=== PATIENT | male | born 1935 | race Caucasian/White ===

== ENCOUNTER 2020-07-29 05:10 | Inpatient (IN) ==
[2020-07-29] MEDS ORDERED: IOPAMIDOL 100 ML BOTTLE IV ONE ×2 (05:11→12:14)
[2020-07-29 05:59] LABS: POC Creatinine 1.1 mg/dL (0.6-1.2)
[2020-07-29 06:13] LABS: POC Pro Time 11.6 sec (11.9-14.5)
[2020-07-29 06:37] LABS: Basophils # (Auto) 0.02 K/mcL (0.00-0.20); Basophils % (Auto) 0.2 % (0.0-2.0); Eosinophils # (Auto) 0.09 K/mcL (0.00-0.70); Eosinophils % (Auto) 0.8 % (0.0-7.0); Hematocrit 42.3 % (41.0-55.0); Hemoglobin 14.9 g/dL (13.5-16.5); Lymphocytes # (Auto) 0.68 K/mcL (1.50-4.80); Lymphocytes % (Auto) 6.3 % (15.0-49.0); Mean Cell Volume 94.8 fL (80.0-100.0); Mean Corpuscular HGB Conc 35.2 g/dL (31.0-36.0); Mean Platelet Volume 9.4 fL (7.4-10.4); Monocytes # (Auto) 0.58 K/mcL (0.10-0.90); Monocytes % (Auto) 5.4 % (1.0-12.0); Neutrophils % (Auto) 87.3 % (38.0-78.0); Platelet Count 207 K/mcL (140-440); RBC 4.46 M/mcL (4.50-5.90); Red Cell Distribution Width 12.8 % (11.5-14.5); WBC 10.8 K/mcL (4.5-11.0)
--- NOTE | 2020-07-29 06:45 | Emergency Department Note ---
Weakness HPI General Chief complaint: Weakness Stated complaint: falls/weakness Time Seen by Provider: 07/29/20 05:24 Source: EMS Mode of arrival: EMS Limitations: altered mental status History of Present Illness HPI Narrative: This patient was brought in because of concerns for a right facial droop which is not evident on arrival in the emergency room. I do not find any significant deficits. EMS apparently went out about 1:00 in the morning for a lift assist but there was no thought of a stroke at that time. Patient has had TIA and stroke in the past. He has been on aspirin and Plavix in the past but has had trouble with epistaxis so I think the Plavix may have been stopped. Related Data Home Medications Medication Instructions Recorded Confirmed donepezil 10 mg PO QPM 07/29/20 07/29/20 hydrochlorothiazide 12.5 mg PO QAM 07/29/20 07/29/20 trazodone 150 mg PO QPM 07/29/20 07/29/20 Previous Rx's Medication Instructions Recorded aspirin 81 mg tablet,delayed 81 mg PO QDAY #90 tab 08/24/18 release Allergies Allergy/AdvReac Type Severity Reaction Status Date / Time No Known Drug Allergies Allergy Verified 07/29/20 13:13 Review of Systems ROS ROS Narrative: Narrative: All systems ED: reviewed and negative except as stated. PFS Narrative Patient History Narrative: Narrative: Medical/Surgical/Family History All Active Problems Epistaxis (Acute) Anterior epistaxis (Acute) Hip pain, right (Acute) Acute cerebrovascular accident (CVA) (Acute) Self-care deficit (Acute) Caregiver has difficulty performing caretaking (Acute) Obesity (Chronic) Chronic anticoagulation (Chronic) Prostatitis, chronic (Chronic) Urinary retention due to benign prostatic hyperplasia (Chronic) Osteoporosis (Chronic) Hypertension, essential, benign (Chronic) Hyperlipidemia (Chronic) GERD (gastroesophageal reflux disease) (Chronic) CVA (cerebrovascular accident) (Chronic) Atherosclerosis, generalized (Chronic) Aortic aneurysm (Chronic) Psoriasis (Chronic) Tinnitus (Chronic) Drusen (degenerative) of retina (Chronic) Diverticulitis of colon (Chronic) Blepharitis (Chronic) Pseudophakia (Chronic) Phimosis (Chronic) Nuclear sclerosis (Chronic) Visual disturbance (Chronic) Medical History Aortic aneurysm (Chronic) Aphasia (Resolved) Atherosclerosis, generalized (Chronic) 05/16/2014 - Dr Baxter Blepharitis (Chronic) 06/27/2014 - Dr. Otoniel Bee Cholelithiasis (Resolved) Cholelithiasis gallbladder w/o obstruction Chronic anticoagulation (Chronic) clopidogrel Contusion (Resolved) CVA (cerebrovascular accident) (Chronic) 06/2013; Right occipital; multiple Diverticulitis of colon (Chronic) Drusen (degenerative) of retina (Chronic) 06/27/2014 - Dr. Otoniel Bee GERD (gastroesophageal reflux disease) (Chronic) Hallucinations (Resolved) Hyperlipidemia (Chronic) Hypertension, essential, benign (Chronic) Nuclear sclerosis (Chronic) 06/27/2014 - Dr. Otoniel Bee Obesity (Chronic) Osteoporosis (Chronic) Phimosis (Chronic) Pneumonia (Resolved) In the Prostatitis, chronic (Chronic) Pseudophakia (Chronic) 06/27/2014 - Dr. Otoniel Bee Psoriasis (Chronic) TIA (transient ischemic attack) (Resolved) Tinnitus (Chronic) Urinary retention due to benign prostatic hyperplasia (Chronic) Visual disturbance (Chronic) 06/27/2014 - Dr. Otoniel Bee Surgical History No pertinent past surgical history (Resolved) Family History Mother Cerebrovascular accident, Onset Age: 73 Son Hypertension Brother Cerebrovascular accident Social History Smoking Status: Never smoker Alcohol Intake Frequency: does not drink Substance Use: does not use Exam Narrative Narrative: Narrative: General Limitations: altered mental status Head Head: Present atraumatic, normocephalic and normal inspection Eye Eye: Present normal appearance, PERRL and EOMI; Absent scleral icterus and conjunctival injection ENT ENT: Present normal exam, normal oropharynx and mucous membranes moist Neck Neck: Present normal inspection and full ROM Chest Chest: Present normal inspection and symmetric chest wall rise Respiratory Respiratory: Present normal lung sounds bilaterally; Absent respiratory distress, rales/crackles and wheezes Cardiovascular Cardiovascular: Present regular rate, normal rhythm and normal heart sounds Adbominal Abdominal: Present soft; Absent distention and tenderness Extremities Extremities: Present normal inspection and full ROM; Absent pedal edema and pretibial edema Neurological Neurological: Present alert Expanded Neurological Speech: Present fluid speech CRANIAL NERVES: facial palsy (VII): Normal Motor strength - LUE: 5/5 Motor strength - RUE: 5/5 Motor strength - LLE: 5/5 Motor strength - RLE: 5/5 Psychiatric Psychiatric: Present normal affect Skin Skin: Present warm (WNL) and dry; Absent rash Course Vital Signs Vital signs: Vital Signs Pulse Rate 57 L 07/29/20 05:12 Respiratory Rate 19 07/29/20 05:12 Blood Pressure 108/66 07/29/20 05:12 Pulse Oximetry (%) 94 07/29/20 05:12 Temperature 97.2 F 08/01/20 04:10 Pulse Rate 65 07/30/20 07:51 Respiratory Rate 18 08/01/20 04:10 Blood Pressure 127/64 08/01/20 04:10 Pulse Oximetry (%) 95 08/01/20 04:10 MDM MDM Narrative Medical decision making narrative: Narrative: Patient will be admitted to the hospital for CVA. Lab Data Result diagrams: 08/01/20 05:22 08/01/20 05:22 Labs: Lab Results 07/29/20 07/29/20 07/29/20 Range/Units 05:55 05:55 05:55 WBC 10.8 (4.5-11.0) K/mcL RBC 4.46 L (4.50-5.90) M/mcL Hgb 14.9 (13.5-16.5) g/dL Hct 42.3 (41.0-55.0) % MCV 94.8 (80.0-100.0) fL MCH 33.4 (26.0-34.0) pg MCHC 35.2 (31.0-36.0) g/dL RDW 12.8 (11.5-14.5) % Plt Count 207 (140-440) K/mcL MPV 9.4 (7.4-10.4) fL Neut % (Auto) 87.3 H (38.0-78.0) % Lymph % (Auto) 6.3 L (15.0-49.0) % [place] % (Auto) 5.4 (1.0-12.0) % Eos % (Auto) 0.8 (0.0-7.0) % Baso % (Auto) 0.2 (0.0-2.0) % Lymph # (Auto) 0.68 L (1.50-4.80) K/mcL [place] # (Auto) 0.58 (0.10-0.90) K/mcL Eos # (Auto) 0.09 (0.00-0.70) K/mcL Baso # (Auto) 0.02 (0.00-0.20) K/mcL Absolute Neutrophils 9.43 H (1.80-8.00) K/mcL POC PT 11.6 L (11.9-14.5) sec PT 14.2 (11.9-14.5) sec POC INR 1.0 (0.8-1.2) INR 1.1 (0.9-1.1) APTT 29.1 (20.0-37.0) sec Sodium 132 L (133-145) mmol/L Potassium 3.6 (3.3-5.1) mmol/L Chloride 94 L (96-108) mmol/L Carbon Dioxide 25 (22-30) mmol/L Anion Gap 13.0 (8.0-16.0) BUN 13 (8-23) mg/dL Creatinine 1.2 (0.7-1.2) mg/dL POC Creatinine 1.1 (0.6-1.2) mg/dL GFR Calculation 55 Glucose 140 H (70-105) mg/dL Hemoglobin A1c (4.0-6.0) % Hgb Estim Average Glucose mg/dL Calcium 9.3 (8.6-10.4) mg/dL Total Bilirubin 0.7 (0.1-1.0) mg/dL AST 16 (<40) U/L ALT 11 (<40) U/L Alkaline Phosphatase 88 (39-117) U/L Troponin T (<0.03) ng/mL NT-Pro-B Natriuret Pep (<450.0) pg/mL Total Protein 6.9 (5.9-8.4) gm/dL Albumin 3.6 (3.2-5.2) gm/dL Globulin 3.3 (2.2-3.7) gm/dL Albumin/Globulin Ratio 1.1 (1.0-2.3) SARS-CoV-2 (PCR) (Negative) 1107/29/20 07/29/20 Range/Units 05:55 11:22 11:55 WBC (4.5-11.0) K/mcL RBC (4.50-5.90) M/mcL Hgb (13.5-16.5) g/dL Hct (41.0-55.0) % MCV (80.0-100.0) fL MCH (26.0-34.0) pg MCHC (31.0-36.0) g/dL RDW (11.5-14.5) % Plt Count (140-440) K/mcL MPV (7.4-10.4) fL Neut % (Auto) (38.0-78.0) % Lymph % (Auto) (15.0-49.0) % [place] % (Auto) (1.0-12.0) % Eos % (Auto) (0.0-7.0) % Baso % (Auto) (0.0-2.0) % Lymph # (Auto) (1.50-4.80) K/mcL Marin # (Auto) (0.10-0.90) K/mcL Eos # (Auto) (0.00-0.70) K/mcL Baso # (Auto) (0.00-0.20) K/mcL Absolute Neutrophils (1.80-8.00) K/mcL POC PT (11.9-14.5) sec PT 13.6 (11.9-14.5) sec POC INR (0.8-1.2) INR 1.0 (0.9-1.1) APTT 20.0 (20.0-37.0) sec Sodium (133-145) mmol/L Potassium (3.3-5.1) mmol/L Chloride (96-108) mmol/L Carbon Dioxide (22-30) mmol/L Anion Gap (8.0-16.0) BUN (8-23) mg/dL Creatinine (0.7-1.2) mg/dL POC Creatinine (0.6-1.2) mg/dL GFR Calculation Glucose (70-105) mg/dL Hemoglobin A1c (4.0-6.0) % Hgb Estim Average Glucose mg/dL Calcium (8.6-10.4) mg/dL Total Bilirubin (0.1-1.0) mg/dL AST (<40) U/L ALT (<40) U/L Alkaline Phosphatase (39-117) U/L Troponin T < 0.01 (<0.03) ng/mL NT-Pro-B Natriuret Pep (<450.0) pg/mL Total Protein (5.9-8.4) gm/dL Albumin (3.2-5.2) gm/dL Globulin (2.2-3.7) gm/dL Albumin/Globulin Ratio (1.0-2.3) SARS-CoV-2 (PCR) Invalid A (Negative) 07/29/20 07/29/20 Range/Units 11:55 11:55 WBC (4.5-11.0) K/mcL RBC (4.50-5.90) M/mcL Hgb (13.5-16.5) g/dL Hct (41.0-55.0) % MCV (80.0-100.0) fL MCH (26.0-34.0) pg MCHC (31.0-36.0) g/dL RDW (11.5-14.5) % Plt Count (140-440) K/mcL MPV (7.4-10.4) fL Neut % (Auto) (38.0-78.0) % Lymph % (Auto) (15.0-49.0) % [place] % (Auto) (1.0-12.0) % Eos % (Auto) (0.0-7.0) % Baso % (Auto) (0.0-2.0) % Lymph # (Auto) (1.50-4.80) K/mcL Marin # (Auto) (0.10-0.90) K/mcL Eos # (Auto) (0.00-0.70) K/mcL Baso # (Auto) (0.00-0.20) K/mcL Absolute Neutrophils (1.80-8.00) K/mcL POC PT (11.9-14.5) sec PT (11.9-14.5) sec POC INR (0.8-1.2) INR (0.9-1.1) APTT (20.0-37.0) sec Sodium (133-145) mmol/L Potassium (3.3-5.1) mmol/L Chloride (96-108) mmol/L Carbon Dioxide (22-30) mmol/L Anion Gap (8.0-16.0) BUN (8-23) mg/dL Creatinine (0.7-1.2) mg/dL POC Creatinine (0.6-1.2) mg/dL GFR Calculation Glucose (70-105) mg/dL Hemoglobin A1c 6.3 H (4.0-6.0) % Hgb Estim Average Glucose 134 mg/dL Calcium (8.6-10.4) mg/dL Total Bilirubin (0.1-1.0) mg/dL AST (<40) U/L ALT (<40) U/L Alkaline Phosphatase (39-117) U/L Troponin T < 0.01 (<0.03) ng/mL NT-Pro-B Natriuret Pep 337.0 (<450.0) pg/mL Total Protein (5.9-8.4) gm/dL Albumin (3.2-5.2) gm/dL Globulin (2.2-3.7) gm/dL Albumin/Globulin Ratio (1.0-2.3) SARS-CoV-2 (PCR) (Negative) Radiology Data Radiology results reviewed: Yes I reviewed the patient's radiology results. Radiology results narrative: Brain MRI showed for acute lacunar infarcts in the right frontal lobe. CTA of head shows scattered stenoses up to 70% in various vessels. EKG Data EKG #1: EKG attestation: Yes I reviewed and interpreted this EKG. EKG shows normal: sinus rhythm Rate: normal Discharge Plan Patient/Caregiver Discharge Instructions Pt seen by [facility]/PA only: No Clinical Impression: Acute cerebrovascular accident (CVA), Self-care deficit, Caregiver has difficulty performing caretaking Patient Disposition: Xfer As Inpt ([facility]) Discharge Date/Time: 07/29/20 12:20
[2020-07-29 06:55] LABS: ALT/SGPT 11 U/L (<40); AST/SGOT 16 U/L (<40); Albumin 3.6 gm/dL (3.2-5.2); Albumin/Globulin Ratio 1.1 (1.0-2.3); Alkaline Phosphatase 88 U/L (39-117); Bilirubin,Total 0.7 mg/dL (0.1-1.0); Blood Urea Nitrogen 13 mg/dL (8-23); Calcium 9.3 mg/dL (8.6-10.4); Carbon Dioxide 25 mmol/L (22-30); Chloride 94 mmol/L (96-108); Globulin 3.3 gm/dL (2.2-3.7); Glomerular Filtration Rate 55; Glucose 140 mg/dL (70-105)
[2020-07-29 07:08] LABS: INR 1.1 (0.9-1.1); Partial Thromboplastin Time 29.1 sec (20.0-37.0); Prothrombin Time 14.2 sec (11.9-14.5)
--- NOTE | 2020-07-29 08:52 | Magnetic Resonance Report ---
CLINICAL INFORMATION: Right facial droop. Possible acute CVA COMPARISON: Brain MRI 04/06/2014 TECHNIQUE: Sagittal T1, axial T2 FLAIR diffusion ADC images were acquired. FINDINGS: The ventricles, sulci, fissures and cisterns are symmetrically enlarged compatible with moderate atrophy which has progressed from 2014 brain MRI. There are no extra-axial fluid collections or mass appreciated. A 6 mm remote lacunar infarct in the right thalamus as again noted. Moderate chronic ischemic changes in the deep cerebral white matter with confluence and the periventricular region have progressed. Scattered small foci of restricted diffusion are present in the deep right frontal white matter: The largest is 4 mm adjacent to the frontal horn. There are also 3-4 smaller foci, less than 4 mm, in the deep mid right frontal white matter near vertex. IMPRESSION: Four small acute nonhemorrhagic lacunar infarcts in the right frontal lobe - all less than 4 mm. Interpreted and Authenticated by: Sohail Strange 07/29/20
--- NOTE | 2020-07-29 08:56 | Cat Scan Report ---
CLINICAL INFORMATION: Acute left facial droop. Evaluate for stroke COMPARISON: Head CT 04/12/2014. TECHNIQUE: 2.5 mm helical slices were obtained in the skull base to vertex. Following reconstruction, axial reformatted images were reviewed at bone and parenchymal windows. The exam was performed using radiation dose optimization techniques including, but not limited to, automated exposure control, adjustment of the mA and/or kV according to patient size and use of iterative reconstruction technique. FINDINGS: The ventricles, sulci, fissures, and cisterns are symmetrically enlarged compatible with moderate age-related atrophy. This has progressed from 2013. No extra-axial fluid collections are identified. Moderate chronic ischemic changes in the deep cerebral white matter and remote 9 mm lacunar infarct in the right thalamus are again noted. There is no evidence of hemorrhage, mass effect, or edema. Bone windows show no osseous abnormality. IMPRESSION: Moderate atrophy with chronic ischemic changes in the deep cerebral white matter and 9 mm lacunar infarct right thalamus are all stable. There is no hemorrhage, edema or other acute finding. Moderate cerumen in both external auditory meatus regions may diminish conductive hearing loss Interpreted and Authenticated by: Sohail Strange 07/29/20
--- NOTE | 2020-07-29 09:33 | Cat Scan Report ---
CLINICAL INFORMATION: Acute facial droop evaluate for CVA COMPARISON: None. TECHNIQUE: 80 cc of Isovue-370 were injected intravenously, and using SmartPrep to maximize arterial opacification, 0.625 mm helical slices were obtained from the thoracic aortic arch through the [place]. Following reconstruction, 2.5mm sagittal, coronal and axial reformatted images were processed and reviewed at standard and bone algorithm/window. 3-D volume rendered, CPR and MIP images were processed using a [employer] work station.The exam was performed using radiation dose optimization techniques including, but not limited to, automated exposure control, adjustment of the mA and/or kV according to patient size and use of iterative reconstruction technique. FINDINGS: The thoracic aortic arch is normal diameter and aortic branching is conventional. Both common, internal and external carotid arteries are widely patent. There is moderate calcific plaque in both bifurcations, but no evidence of stenosis. Moderate calcific plaque in both vertebral artery origins resulting in mild, less than than 50%, stenoses. Heavy calcific plaque is seen within the intracranial portion of both distal cervical vertebral arteries. On the left, this results in a mild (less than 50% (stenosis. Both subclavian arteries are widely patent. Soft tissues are unremarkable. The cervical spine is normal in curvature and alignment. At C6-C7, moderate broad disc spur complex with left-sided asymmetry results in mild central canal and moderate left lateral recess narrowing with possible impingement of exiting left C7 nerve root. Lung apices show scattered pleural parenchymal scarring and chronic bronchitis IMPRESSION: 1. Thoracic aortic arch, both subclavian, common, internal and external carotid arteries are widely patent. There is calcific plaque in the carotid bifurcations, but no evidence of stenosis. 2. Mild, left than 50 % stenoses of both vertebral artery origins and also the left intracranial vertebral artery. 3. C6-7: Moderate broad disc spur complex left-sided asymmetry resulting in mild central canal and moderate left lateral recess narrowing and possible impingement of the left C7 nerve root. 4. Mild chronic bronchitis Interpreted and Authenticated by: Sohail Strange 07/29/20
--- NOTE | 2020-07-29 09:36 | Cat Scan Report ---
CLINICAL INFORMATION: Acute facial droop. Possible CVA COMPARISON: None. TECHNIQUE: 80 cc of Isovue-370 were injected intravenously , and using SmartPrep to maximize cerebral arterial opacification, 0.625 mm helical slices were obtained from the skull base through the cerebral vertex. Following reconstruction , sagittal, coronal and axial reformatted images were processed and reviewed at multiple windows and levels. 3D volume rendered and MIP images were acquired at a independent workstation. The exam was performed using radiation dose optimization techniques including, but not limited to, automated exposure control, adjustment of the mA and/or kV according to patient size and use of iterative reconstruction technique. FINDINGS: There is heavy calcific plaque in the intracranial portion of both vertebral arteries. The left side, there is a 50% stenosis within the calcified segment and a 70% stenosis near the basilar junction. The basilar artery is widely patent. There are scattered mild stenoses in both posterior cerebral arteries ranging up to 50%. There is a 70% stenosis of the M1 segment right middle cerebral artery. Scattered stenoses due to fibrofatty calcific plaque seen throughout both middle and anterior cerebral arteries ranging up to 70%. No evidence of pierce thrombosis or embolus. IMPRESSION: Scattered stenoses ranging up to 70% throughout the both middle, posterior and anterior cerebral arteries. 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 No evidence of thrombus or embolus. Interpreted and Authenticated by: Sohail Strange 07/29/20
--- NOTE | 2020-07-29 09:44 | Emergency Department Note ---
Weakness HPI General Chief complaint: Weakness Stated complaint: falls/weakness Time Seen by Provider: 07/29/20 05:24 Source: EMS Mode of arrival: EMS Limitations: altered mental status History of Present Illness HPI Narrative: Narrative: Related Data Previous Rx's Medication Instructions Recorded aspirin 81 mg tablet,delayed 81 mg PO QDAY #90 tab 08/24/18 release clopidogrel 75 mg tablet 75 mg PO QDAY #90 tab 08/24/18 dutasteride 0.5 mg-tamsulosin ER 1 cap PO QDAY #90 cap 08/24/18 0.4 mg capsule ext.release 24hr mphas losartan 100 1 tab PO QAM #90 tab 08/24/18 mg-hydrochlorothiazide 12.5 mg tablet simvastatin 40 mg tablet 40 mg PO QPM #90 tab 08/24/18 sulfamethoxazole 800 1 tab PO Q12H #60 tab 10/13/18 mg-trimethoprim 160 mg tablet Allergies Allergy/AdvReac Type Severity Reaction Status Date / Time No Known Drug Allergies Allergy Verified 12/02/18 09:01 Review of Systems ROS ROS Narrative: Narrative: PFS Narrative Patient History Narrative: Narrative: Medical/Surgical/Family History All Active Problems (Updated 07/29/20 @ 11:57 by Branden Bajwa DO) Epistaxis (Acute) Anterior epistaxis (Acute) Hip pain, right (Acute) Acute cerebrovascular accident (CVA) (Acute) Self-care deficit (Acute) Caregiver has difficulty performing caretaking (Acute) Obesity (Chronic) Chronic anticoagulation (Chronic) Prostatitis, chronic (Chronic) Urinary retention due to benign prostatic hyperplasia (Chronic) Osteoporosis (Chronic) Hypertension, essential, benign (Chronic) Hyperlipidemia (Chronic) GERD (gastroesophageal reflux disease) (Chronic) CVA (cerebrovascular accident) (Chronic) Atherosclerosis, generalized (Chronic) Aortic aneurysm (Chronic) Psoriasis (Chronic) Tinnitus (Chronic) Drusen (degenerative) of retina (Chronic) Diverticulitis of colon (Chronic) Blepharitis (Chronic) Pseudophakia (Chronic) Phimosis (Chronic) Nuclear sclerosis (Chronic) Visual disturbance (Chronic) Medical History (Updated 07/29/20 @ 11:57 by Branden Bajwa DO) Aortic aneurysm (Chronic) Aphasia (Resolved) Atherosclerosis, generalized (Chronic) 05/16/2014 - Dr Baxter Blepharitis (Chronic) 06/27/2014 - Dr. Otoniel Bee Cholelithiasis (Resolved) Cholelithiasis gallbladder w/o obstruction Chronic anticoagulation (Chronic) clopidogrel Contusion (Resolved) CVA (cerebrovascular accident) (Chronic) 06/2013; Right occipital; multiple Diverticulitis of colon (Chronic) Drusen (degenerative) of retina (Chronic) 06/27/2014 - Dr. Otoniel Bee GERD (gastroesophageal reflux disease) (Chronic) Hallucinations (Resolved) Hyperlipidemia (Chronic) Hypertension, essential, benign (Chronic) Nuclear sclerosis (Chronic) 06/27/2014 - Dr. Otoniel Bee Obesity (Chronic) Osteoporosis (Chronic) Phimosis (Chronic) Pneumonia (Resolved) In the 1969's Prostatitis, chronic (Chronic) Pseudophakia (Chronic) 06/27/2014 - Dr. Otoniel Bee Psoriasis (Chronic) TIA (transient ischemic attack) (Resolved) Tinnitus (Chronic) Urinary retention due to benign prostatic hyperplasia (Chronic) Visual disturbance (Chronic) 06/27/2014 - Dr. Otoniel Bee Surgical History (Updated 10/15/18 @ 10:12 by Branden Bajwa DO) No pertinent past surgical history (Resolved) Family History Cerebrovascular accident Mother, Onset Age: 73 Brother Hypertension Son Social History Smoking Status: Never smoker Alcohol Intake Frequency: does not drink Substance Use: does not use Exam Narrative Narrative: Narrative: General: No acute distress, nontoxic. Mostly laying quietly with his eyes closed. Eyes: Pupils are symmetric at 2 mm. The left is a bit goopy with yellow mucus. Neck: No lymphadenopathy or thyromegaly or mass. Lungs: Clear to auscultation CV: Regular without murmur Extremities: No cyanosis or clubbing. Neuro: Speech is clear and understandable. He responds primarily to questions. There is no spontaneous speech production. He moves all extremities easily and well. 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 Plantarflexion is excellent with good resistance. He is not able to obey commands regarding hip flexors against resistance. Face is symmetric. He is not able to obey commands to smile big, puffs his lips out,. He does not seem to be able to answer questions at least some of them. He does obey commands to repeat words. When answering questions he uses words in a full sentence but they do not make sense for the question. Unable to assess specifically sensory. Extraocular muscles appear to be intact with symmetric gaze but he is not able to be cooperative to open his eyes and follow commands. Psychiatric: Seems to be pleasant and cooperative but resting most of the time. No agitation or psychomotor retardation specifically. No hallucinations or delusions. Abdomen: No hepatosplenomegaly. He does seem to protect some of his upper airways but he was seen to move easily and well. He denies specifically pain on palpation. General Limitations: altered mental status Course Vital Signs Vital signs: Vital Signs Pulse Rate 57 L 07/29/20 05:12 Respiratory Rate 19 07/29/20 05:12 Blood Pressure 108/66 07/29/20 05:12 Pulse Oximetry (%) 94 07/29/20 05:12 Temperature 97.0 F 07/29/20 05:37 Pulse Rate 64 07/29/20 08:46 Respiratory Rate 13 07/29/20 09:17 Blood Pressure 138/94 07/29/20 09:17 Pulse Oximetry (%) 94 07/29/20 08:46 MDM MDM Narrative Medical decision making narrative: Narrative: 09:42 AM - CT NECK: 1. Thoracic aortic arch, both subclavian, common, internal and external carotid arteries are widely patent. There is calcific plaque in the carotid bifurcations, but no evidence of stenosis. 2. Mild, left than 50 % stenoses of both vertebral artery origins and also the left intracranial vertebral artery. 3. C6-7: Moderate broad disc spur complex left-sided asymmetry resulting in mild central canal and moderate left lateral recess narrowing and possible i mpingement of the left C7 nerve root. CT HEAD: Scattered stenoses less than 70% of the mid, posterior, anterior cerebral arteries. No thrombus or embolus. MRI demonstrates 4 small acute nonhemorrhagic lacunar infarcts in the right frontal lobe lesion measuring less than 4 mm. Old 6 mm right thalamic infarct noted.. 9:44 AM - patient interviewed and does seem quite confused and unable to follow all instructions. He is able to follow some simple instructions and able to repeat words that he is asked to repeat but for example trying to get him to smile he just blows air and puffs out his lips. He is not able to open his eyes on command. Pupils do appear equal but small at 2.5 mm max diameter. He has good upper and lower extremity general strength except he does not seem to follow commands very well for the lower extremities regarding hip flexion i.e. at the knee against resistance. Some of his answers do not match the question but are in full sentences. Review of his information includes a DNR with emphasis on comfort measures signed by himself and by Dr. Stacy in this year. I tried to reach patient's , at [phone] with no answer. I left a message the first time for her to call back. I also called the home phone, and left a message there as well. 10:08 AM - I did speak with patient's , Rita, who reports that again and confirms that he has not been on Plavix for approximately 1 year. He did most recently have a TIA on March 05, 2020, was kept overnight and he actually got a lot better. He usually has been independent at home but lately has required more help. He has been incontinent of bowel and bladder for several days. He has not been able to move around well at all. He was not helping her at all last night in his movements. Some of the time he would be on his knees and she could not get him to help himself up from the floor. He cannot get in the tub with out her help recently and cannot get in the tub even now because he is too weak and she cannot lift him. She would like to consider the options of r ehabilitation. She confirms other understands his previous made wishes of DNR and comfort measures but would like to have intervention for aggressive treatment if possible. 10:40 AM - spoke with hospitalist, Dr. Do, who is willing to see patient in have him continue the stroke treatment/work-up inpatient. He would like to speak with a neurologist. 10:45 AM - patient did not tolerate walking but a few steps before he became so weak that he was nearly falling. That was here in the emergency room. 10:50 AM approximately - nursing staff contacted patient's . Last known normal was 2 days ago so presumably went to bed in the evening normal. She confirms he has been taking a baby aspirin daily. 11:02 AM - I spoke with stroke neurologist, :Dr. Roach, who agrees with no TPA, rehab, and suspects that there could be based on his age A. fib is the cause of this presentation so recommends looking for A. fib with monitoring, echo, may be sending him home with a monitor, and beginning again the clopidogrel to starting with 75 mg daily. He would still be monitored for bleeding issues or concerns and this could be a difficult clinical decision point. 11:08 AM approximately - I spoke with Dr. Do, hospitalist, regarding the above. He is here to see the patient for admission. Lab Data Result diagrams: 07/29/20 05:55 07/29/20 05:55 Labs: Lab Results 07/29/20 07/29/20 07/29/20 Range/Units 05:55 05:55 05:55 WBC 10.8 (4.5-11.0) K/mcL RBC 4.46 L (4.50-5.90) M/mcL Hgb 14.9 (13.5-16.5) g/dL Hct 42.3 (41.0-55.0) % MCV 94.8 (80.0-100.0) fL MCH 33.4 (26.0-34.0) pg MCHC 35.2 (31.0-36.0) g/dL RDW 12.8 (11.5-14.5) % Plt Count 207 (140-440) K/mcL MPV 9.4 (7.4-10.4) fL Neut % (Auto) 87.3 H (38.0-78.0) % Lymph % (Auto) 6.3 L (15.0-49.0) % [place] % (Auto) 5.4 (1.0-12.0) % Eos % (Auto) 0.8 (0.0-7.0) % Baso % (Auto) 0.2 (0.0-2.0) % Lymph # (Auto) 0.68 L (1.50-4.80) K/mcL [place] # (Auto) 0.58 (0.10-0.90) K/mcL Eos # (Auto) 0.09 (0.00-0.70) K/mcL Baso # (Auto) 0.02 (0.00-0.20) K/mcL Absolute Neutrophils 9.43 H (1.80-8.00) K/mcL POC PT 11.6 L (11.9-14.5) sec PT 14.2 (11.9-14.5) sec POC INR 1.0 (0.8-1.2) INR 1.1 (0.9-1.1) APTT 29.1 (20.0-37.0) sec Sodium 132 L (133-145) mmol/L Potassium 3.6 (3.3-5.1) mmol/L Chloride 94 L (96-108) mmol/L Carbon Dioxide 25 (22-30) mmol/L Anion Gap 13.0 (8.0-16.0) BUN 13 (8-23) mg/dL Creatinine 1.2 (0.7-1.2) mg/dL POC Creatinine 1.1 (0.6-1.2) mg/dL GFR Calculation 55 Glucose 140 H (70-105) mg/dL Calcium 9.3 (8.6-10.4) mg/dL Total Bilirubin 0.7 (0.1-1.0) mg/dL AST 16 (<40) U/L ALT 11 (<40) U/L Alkaline Phosphatase 88 (39-117) U/L Troponin T (<0.03) ng/mL Total Protein 6.9 (5.9-8.4) gm/dL Albumin 3.6 (3.2-5.2) gm/dL Globulin 3.3 (2.2-3.7) gm/dL Albumin/Globulin Ratio 1.1 (1.0-2.3) 07/29/20 Range/Units 05:55 WBC (4.5-11.0) K/mcL RBC (4.50-5.90) M/mcL Hgb (13.5-16.5) g/dL Hct (41.0-55.0) % MCV (80.0-100.0) fL MCH (26.0-34.0) pg MCHC (31.0-36.0) g/dL RDW (11.5-14.5) % Plt Count (140-440) K/mcL MPV (7.4-10.4) fL Neut % (Auto) (38.0-78.0) % Lymph % (Auto) (15.0-49.0) % [place] % (Auto) (1.0-12.0) % Eos % (Auto) (0.0-7.0) % Baso % (Auto) (0.0-2.0) % Lymph # (Auto) (1.50-4.80) K/mcL [place] # (Auto) (0.10-0.90) K/mcL Eos # (Auto) (0.00-0.70) K/mcL Baso # (Auto) (0.00-0.20) K/mcL Absolute Neutrophils (1.80-8.00) K/mcL POC PT (11.9-14.5) sec PT (11.9-14.5) sec POC INR (0.8-1.2) INR (0.9-1.1) APTT (20.0-37.0) sec Sodium (133-145) mmol/L Potassium (3.3-5.1) mmol/L Chloride (96-108) mmol/L Carbon Dioxide (22-30) mmol/L Anion Gap (8.0-16.0) BUN (8-23) mg/dL Creatinine (0.7-1.2) mg/dL POC Creatinine (0.6-1.2) mg/dL GFR Calculation Glucose (70-105) mg/dL Calcium (8.6-10.4) mg/dL Total Bilirubin (0.1-1.0) mg/dL AST (<40) U/L ALT (<40) U/L Alkaline Phosphatase (39-117) U/L Troponin T < 0.01 (<0.03) ng/mL Total Protein (5.9-8.4) gm/dL Albumin (3.2-5.2) gm/dL Globulin (2.2-3.7) gm/dL Albumin/Globulin Ratio (1.0-2.3) Discharge Plan Patient/Caregiver Discharge Instructions Pt seen by STRAIGHT TRUCK DRIVER/PA only: No Clinical Impression: Acute cerebrovascular accident (CVA), Self-care deficit, Caregiver has diffi culty performing caretaking Patient Disposition: Xfer As Inpt ([facility]) Follow up with: Shai Stacy MD [Primary Care Provider] - Prescriptions: No Action aspirin [Aspirin Low Dose] 81 mg tablet,delayed release (DR/EC) 81 mg PO QDAY Qty: 90 RF: 3 clopidogrel 75 mg tablet 75 mg PO QDAY Qty: 90 RF: 3 losartan-hydrochlorothiazide 100-12.5 mg tablet 1 tab PO QAM Qty: 90 RF: 3 simvastatin 40 mg tablet 40 mg PO QPM Qty: 90 RF: 3 dutasteride-tamsulosin 0.5-0.4 mg capsule, ER multiphase 24 hr 1 cap PO QDAY Qty: 90 RF: 3 sulfamethoxazole-trimethoprim [Bactrim DS] 800-160 mg tablet 1 tab PO Q12H Qty: 60 RF: 0
[2020-07-29] MEDS ORDERED: 0.9 % SODIUM CHLORIDE 1,000 ML IV SCH (11:30)
[2020-07-29] MEDS: 0.9 % SODIUM CHLORIDE 1,000 ML IV SCH ×2 (12:25→22:10)
[2020-07-29 13:15] LABS: Prothrombin Time 13.6 sec (11.9-14.5)
[2020-07-29 13:16] LABS: Estimated Average Glucose(eAG) 134 mg/dL; Hemoglobin A1C 6.3 % Hgb (4.0-6.0)
--- NOTE | 2020-07-29 13:40 | Internal Med History&Physical ---
HPI History of Present Illness Patient information: Note initiated : 07/29/20 at 1:25 pm Service Date, if different from initiated Date: [] Patient: Jasmin Biggs 84 y/o M admitted on 07/29/20 for Falls, Weakness. Chief Complaint: [] History of present illness: Mr. Biggs is a 84 year old M with a history of previous CVA, psoriasis and GERD who was brought to the ER due to concerns for a right facial droop. Patient is a poor historian and cannot give medical history. ER physician Dr. Lu could not find right facial droop on his exam. In the ER, CT of head without contrast showed negative for acute pathology. But MRI brain showed four small acute nonhemorrhagic lacunar infarcts in the right frontal lobe - all less than 4 mm. As per ER Dr. Bajwa, pt has been taking aspirin. He stopped taking plavix 1 year ago due to nose bleeding. Dr. Bajwa spoke to neurology Dr. Espana who suggested to continue both aspirin and plavix, and discharge him on Holter monitor. Review of Systems Review of systems: Positive for right facial droop. All other systems were reviewed and negative. PFSH PFSH All Active Problems Epistaxis (Acute) Anterior epistaxis (Acute) Hip pain, right (Acute) Acute cerebrovascular accident (CVA) (Acute) Self-care deficit (Acute) Caregiver has difficulty performing caretaking (Acute) Obesity (Chronic) Chronic anticoagulation (Chronic) Prostatitis, chronic (Chronic) Urinary retention due to benign prostatic hyperplasia (Chronic) Osteoporosis (Chronic) Hypertension, essential, benign (Chronic) Hyperlipidemia (Chronic) GERD (gastroesophageal reflux disease) (Chronic) CVA (cerebrovascular accident) (Chronic) Atherosclerosis, generalized (Chronic) Aortic aneurysm (Chronic) Psoriasis (Chronic) Tinnitus (Chronic) Drusen (degenerative) of retina (Chronic) Diverticulitis of colon (Chronic) Blepharitis (Chronic) Pseudophakia (Chronic) Phimosis (Chronic) Nuclear sclerosis (Chronic) Visual disturbance (Chronic) Medical History Aortic aneurysm (Chronic) Aphasia (Resolved) Atherosclerosis, generalized (Chronic) 05/16/2014 - Dr Baxter Blepharitis (Chronic) 06/27/2014 - Dr. Otoniel Bee Cholelithiasis (Resolved) Cholelithiasis gallbladder w/o obstruction Chronic anticoagulation (Chronic) clopidogrel Contusion (Resolved) CVA (cerebrovascular accident) (Chronic) 06/2013; Right occipital; multiple Diverticulitis of colon (Chronic) Drusen (degenerative) of retina (Chronic) 06/27/2014 - Dr. Otoniel Bee GERD (gastroesophageal reflux disease) (Chronic) Hallucinations (Resolved) Hyperlipidemia (Chronic) Hypertension, essential, benign (Chronic) Nuclear sclerosis (Chronic) 06/27/2014 - Dr. Otoniel Bee Obesity (Chronic) Osteoporosis (Chronic) Phimosis (Chronic) Pneumonia (Resolved) In the s Prostatitis, chronic (Chronic) Pseudophakia (Chronic) 06/27/2014 - Dr. Otoniel Bee Psoriasis (Chronic) TIA (transient ischemic attack) (Resolved) Tinnitus (Chronic) Urinary retention due to benign prostatic hyperplasia (Chronic) Visual disturbance (Chronic) 06/27/2014 - Dr. 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 smoking status: Never smoker alcohol intake frequency: does not drink substance use type: does not use MEDS/ALLERGIES Home Medications and Allergies Home Medications Medication Instructions Recorded Confirmed Type aspirin 81 mg tablet,delayed 81 mg PO QDAY #90 tab 08/24/18 10/24/18 Rx release losartan 100 1 tab PO QAM #90 tab 08/24/18 10/24/18 Rx mg-hydrochlorothiazide 12.5 mg tablet Allergies Allergy/AdvReac Type Severity Reaction Status Date / Time No Known Drug Allergies Allergy Verified 07/29/20 13:13 EXAM Constitutional Vitals: Temp Pulse Resp BP Pulse Ox 97.0 F 54 L 14 114/66 96 07/29/20 05:37 07/29/20 10:46 07/29/20 10:46 07/29/20 10:46 07/29/20 10:46 Additional findings Additional findings: General - No acute distress Eyes - PERRLA, EOM intact ENT no rhinorrhea, no noticeable or palpable swelling, no redness or rash around throat or on face Neck supple, no JVD, no thyromegaly Respiratory: Lungs -clear, no wheezing or crackles. Cardiovascular - RRR no m/r/g, GI - Normal bowel sounds, no distended, soft. Extremeties - No edema, cyanosis or clubbing Hemo/lymphatic/immune no lymphadenopathy Neurological Alert, left nasolabial shallow, strength and sensation in both legs and arms seem to be intact. Psychiatry flat affect DATA Data Completed and Pending Labs: Labs from last 24 hours 07/29/20 07/29/20 07/29/20 11:55 11:55 11:55 WBC RBC Hgb Hct MCV MCH MCHC RDW Plt Count MPV Neut % (Auto) Lymph % (Auto) [place] % (Auto) Eos % (Auto) Baso % (Auto) Lymph # (Auto) [place] # (Auto) Eos # (Auto) Baso # (Auto) Absolute Neutrophils POC PT PT 13.6 POC INR INR 1.0 APTT 20.0 Sodium Potassium Chloride Carbon Dioxide Anion Gap BUN Creatinine POC Creatinine GFR Calculation Glucose Hemoglobin A1c 6.3 H Estim Average Glucose 134 Calcium Total Bilirubin AST ALT Alkaline Phosphatase Troponin T < 0.01 NT-Pro-B Natriuret Pep 337.0 Total Protein Albumin Globulin Albumin/Globulin Ratio SARS-CoV-2 (PCR) 07/29/20 07/29/20 07/29/20 11:22 05:55 05:55 WBC RBC Hgb Hct MCV MCH MCHC RDW Plt Count MPV Neut % (Auto) Lymph % (Auto) [place] % (Auto) Eos % (Auto) Baso % (Auto) Lymph # (Auto) [place] # (Auto) Eos # (Auto) Baso # (Auto) Absolute Neutrophils POC PT PT POC INR INR APTT Sodium 132 L Potassium 3.6 Chloride 94 L Carbon Dioxide 25 Anion Gap 13.0 BUN 13 Creatinine 1.2 POC Creatinine 1.1 GFR Calculation 55 Glucose 140 H Hemoglobin A1c Estim Average Glucose Calcium 9.3 Total Bilirubin 0.7 AST 16 ALT 11 Alkaline Phosphatase 88 Troponin T < 0.01 NT-Pro-B Natriuret Pep Total Protein 6.9 Albumin 3.6 Globulin 3.3 Albumin/Globulin Ratio 1.1 SARS-CoV-2 (PCR) Invalid A 07/29/20 07/29/20 05:55 05:55 WBC 10.8 RBC 4.46 L Hgb 14.9 Hct 42.3 MCV 94.8 MCH 33.4 MCHC 35.2 RDW 12.8 Plt Count 207 MPV 9.4 Neut % (Auto) 87.3 H Lymph % (Auto) 6.3 L [place] % (Auto) 5.4 Eos % (Auto) 0.8 Baso % (Auto) 0.2 Lymph # (Auto) 0.68 L [place] # (Auto) 0.58 Eos # (Auto) 0.09 Baso # (Auto) 0.02 Absolute Neutrophils 9.43 H POC PT 11.6 L PT 14.2 POC INR 1.0 INR 1.1 APTT 29.1 Sodium Potassium Chloride Carbon Dioxide Anion Gap BUN Creatinine POC Creatinine GFR Calculation Glucose Hemoglobin A1c Estim Average Glucose Calcium Total Bilirubin AST ALT Alkaline Phosphatase Troponin T NT-Pro-B Natriuret Pep Total Protein Albumin Globulin Albumin/Globulin Ratio SARS-CoV-2 (PCR) A/P Narrative A/P Narrative: 1. Acute lacunar stroke 2. Hx of CVA MRI brain - Four small acute nonhemorrhagic lacunar infarcts in the right frontal lobe - all less than 4 mm. CTA head and neck: 70% throughout the both middle, posterior and anterior cerebral arteries. 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 Mild, left than 50 % stenoses of both vertebral artery origins and also the left intracranial vertebral artery. ER Dr. Bajwa spoke to neurology Dr. Espana who suggested to continue both aspirin and plavix, and discharge him on Holter monitor. Echo EKG - sinus rhythm accredited pharmacy technician Neurocheck Q4hrs Hba1c, TSH, PT/INR, lipid panel Pulse ox and oxygen therapy NPO PT/OT/CM/SP aspirin, plavix and lipitor 3. Hx of psoriasis 4. GERD continue home meds 5. Hyponatremia IVF monitor Na levvel 6. HTN permisssive HTN Monitor BP 7. DVT prophylaxis: heparin 8. Code status: As per Dr. Bajwa, DNR/comfort care. But would like to let PT/OT see pt. hope we can place pt to joint terminal attack controller care/SNF. Time Spent With Patient Time: Total time spent is greater than 50% in coordination of care (as documented) at patient's floor/unit and/or counseling patient:
[2020-07-29] MEDS ORDERED: 0.9 % SODIUM CHLORIDE 10 ML SYRINGE IV SCH (14:00)
[2020-07-29] MEDS: 0.9 % SODIUM CHLORIDE 10 ML SYRINGE IV SCH ×3 (16:45→21:02)
[2020-07-29] MEDS ORDERED: ACETAMINOPHEN 325 MG TABLET PO ONE (20:57)
[2020-07-29] MEDS: DONEPEZIL 10 MG TABLET PO SCH (21:00)
[2020-07-29] MEDS ORDERED: FAMOTIDINE/PF 20 MG/2 ML VIAL IV SCH (21:00)
[2020-07-29] MEDS ORDERED: HEPARIN 5,000 UNIT/ML VIAL SQ SCH (21:00)
[2020-07-29] MEDS ORDERED: traZODone HCL 50 MG TABLET PO PRN (21:00)
[2020-07-29] MEDS: FAMOTIDINE/PF 20 MG/2 ML VIAL IV SCH (21:01)
[2020-07-29] MEDS: ACETAMINOPHEN 325 MG TABLET PO PRN (21:01)
[2020-07-29] MEDS: HEPARIN 5,000 UNIT/ML VIAL SQ SCH (21:01)
[2020-07-30] MEDS: 0.9 % SODIUM CHLORIDE 10 ML SYRINGE IV SCH ×3 (05:37→20:22)
[2020-07-30 06:59] LABS: Basophils # (Auto) 0.01 K/mcL (0.00-0.20); Basophils % (Auto) 0.1 % (0.0-2.0); Eosinophils # (Auto) 0.06 K/mcL (0.00-0.70); Eosinophils % (Auto) 0.7 % (0.0-7.0); Hemoglobin 13.8 g/dL (13.5-16.5); Lymphocytes # (Auto) 1.23 K/mcL (1.50-4.80); Lymphocytes % (Auto) 14.4 % (15.0-49.0); Mean Cell Volume 96.4 fL (80.0-100.0); Mean Corpuscular HGB Conc 34.5 g/dL (31.0-36.0); Mean Platelet Volume 9.4 fL (7.4-10.4); Monocytes # (Auto) 0.63 K/mcL (0.10-0.90); Monocytes % (Auto) 7.4 % (1.0-12.0); Neutrophils % (Auto) 77.4 % (38.0-78.0); Platelet Count 190 K/mcL (140-440); RBC 4.15 M/mcL (4.50-5.90); Red Cell Distribution Width 13.2 % (11.5-14.5); WBC 8.5 K/mcL (4.5-11.0)
[2020-07-30] MEDS ORDERED: hydrALAZINE 20 MG/ML VIAL IV PRN (07:29)
[2020-07-30 07:58] LABS: ALT/SGPT 10 U/L (<40); AST/SGOT 19 U/L (<40); Albumin 3.3 gm/dL (3.2-5.2); Albumin/Globulin Ratio 1.2 (1.0-2.3); Alkaline Phosphatase 72 U/L (39-117); Bilirubin,Total 0.5 mg/dL (0.1-1.0); Blood Urea Nitrogen 15 mg/dL (8-23); Calcium 8.6 mg/dL (8.6-10.4); Carbon Dioxide 27 mmol/L (22-30); Chloride 99 mmol/L (96-108); Globulin 2.8 gm/dL (2.2-3.7); Glomerular Filtration Rate 61; Glucose 99 mg/dL (70-105); HDL Cholesterol 35 mg/dL (>40); LDL Cholesterol,Calculated 90 mg/dL (<100); Non-HDL Cholesterol 109 mg/dL (<130); Thyroid Stimulating Hormone 2.71 uIU/mL (0.27-5.01); Triglycerides 97 mg/dL (<150)
[2020-07-30] MEDS: FAMOTIDINE/PF 20 MG/2 ML VIAL IV SCH ×2 (08:22→20:17)
[2020-07-30] MEDS: HEPARIN 5,000 UNIT/ML VIAL SQ SCH ×2 (08:22→20:17)
[2020-07-30] MEDS: CLOPIDOGREL 75 MG TABLET PO SCH (08:23)
[2020-07-30] MEDS: HYDROCHLOROTHIAZIDE 12.5 MG CAPSULE PO SCH (08:23)
[2020-07-30] MEDS: ATORVASTATIN 40 MG TABLET PO SCH (08:23)
[2020-07-30] MEDS: ASPIRIN 81 MG TAB.CHEW PO SCH (08:23)
[2020-07-30] MEDS: 0.9 % SODIUM CHLORIDE 1,000 ML IV SCH ×3 (08:39→18:35)
[2020-07-30] MEDS: CHLORHEXIDINE GLUCONATE 1 ML ORAL.SOL SWABMOUTH SCH ×2 (08:53→20:20)
[2020-07-30] MEDS ORDERED: CLOPIDOGREL 75 MG TABLET PO SCH (09:00)
[2020-07-30] MEDS ORDERED: ATORVASTATIN 40 MG TABLET PO SCH (09:00)
[2020-07-30] MEDS ORDERED: ASPIRIN 81 MG TAB.CHEW PO SCH (09:00)
--- NOTE | 2020-07-30 14:55 | Internal Med Progress Note ---
SUBJECTIVE Subjective Patient information: Note initiated : 07/30/20 at 2:48 pm Service Date, if different from initiated Date: [] Patient: Jasmin Biggs 84 y/o M admitted on 07/29/20 for Falls, Weakness. Chief Complaint: [] Mr. Biggs is a 84 year old M with a history of previous CVA, psoriasis and GERD who was brought to the ER due to concerns for a right facial droop. Patient is a poor historian and cannot give medical history. ER physician Dr. Lu could not find right facial droop on his exam. In the ER, CT of head without contrast showed negative for acute pathology. But MRI brain showed four small acute nonhemorrhagic lacunar infarcts in the right frontal lobe - all less than 4 mm[address] As per ER Dr. Bajwa, pt has been taking aspirin. He stopped taking plavix 1 year ago due to nose bleeding. Dr. Bajwa spoke to neurology Dr. Espana who suggested to continue both aspirin and plavix, and discharge him on Holter monitor. 07/30 Pt does not have any complaints. Denies headache, dizziness, nausea, or vomiting. Blood pressure is not well controlled. He was a found to have bradycardia but patient is asymptomatic. No overnight events Review of Systems Review of systems: Positive for right facial droop. All other systems were reviewed and negative. Constitutional Vitals: Vital Signs Temp Pulse Resp BP Pulse Ox 98.1 F 65 15 119/58 93 07/30/20 12:00 07/30/20 07:51 07/30/20 14:01 07/30/20 14:01 07/30/20 14:01 Period Temp Pulse Resp BP Sys/Patel Pulse Ox Last 24 Hr 97.6 F-98.8 F 51-78 12-29 56-183/33-108 91-98 Intake and Output 07/30/20 07/30/20 07/30/20 05:59 13:59 21:59 Intake Total 975 1480 Output Total 1250 300 Balance -275 1180 Weight 85.7 kg Patient Weight 07/31/20 05:59 Weight 85.7 kg Intake & Output: Intake & Output 07/30/20 07/30/20 07/30/20 05:59 13:59 21:59 Intake Total 975 1480 Output Total 1250 300 Balance -275 1180 Weight 85.7 kg Intake: IV 975 1000 Sodium Chloride 0.9% 1,000 ml @ 975 1000 100 mls/hr IV .Q10H [facility] Rx#: [id number] Oral 480 Output: Urine Catheter Amount 1250 300 Other: Meal Breakfast Percent of Meal Consumed 75% Feeding Ability Total Assistance Urine Appearance Clear Clear Small Blood Clots Small Blood Clots Uretheral (Benites) Clear Small Blood Clots Urine Color Light Kiki Light Kiki Uretheral (Benites) Light Kiki Additional findings Additional findings: General - No acute distress Eyes - PERRLA, EOM intact ENT no rhinorrhea, no noticeable or palpable swelling, no redness or rash around throat or on face Neck supple, no JVD, no thyromegaly Respiratory: Lungs -clear, no wheezing or crackles. Cardiovascular - RRR no m/r/g, GI - Normal bowel sounds, no distended, soft. Extremeties - No edema, cyanosis or clubbing Hemo/lymphatic/immune no lymphadenopathy Neurological Alert, left nasolabial shallow, strength and sensation in both legs and arms seem to be intact. Psychiatry flat affect OBJ DATA Labs CBC & Chem 7: 07/30/20 05:22 07/30/20 05:22 Labs: Abnormal Lab Results 07/30/20 07/30/20 07/29/20 05:22 05:22 11:55 RBC 4.15 L Hct 40.0 L Neut % (Auto) Lymph % (Auto) 14.4 L Lymph # (Auto) 1.23 L Absolute Neutrophils POC PT Sodium Chloride Glucose Hemoglobin A1c 6.3 H HDL Cholesterol 35 L SARS-CoV-2 (PCR) 07/29/20 07/29/20 07/29/20 11:22 05:55 05:55 RBC Hct Neut % (Auto) Lymph % (Auto) Lymph # (Auto) Absolute Neutrophils POC PT 11.6 L Sodium 132 L Chloride 94 L Glucose 140 H Hemoglobin A1c HDL Cholesterol SARS-CoV-2 (PCR) Invalid A 07/29/20 05:55 RBC 4.46 L Hct Neut % (Auto) 87.3 H Lymph % (Auto) 6.3 L Lymph # (Auto) 0.68 L Absolute Neutrophils 9.43 H POC PT Sodium Chloride Glucose Hemoglobin A1c HDL Cholesterol SARS-CoV-2 (PCR) Meds: Medications Acetaminophen (Tylenol) 650 mg PO Q6HP PRN; Protocol PRN Reason: Per Pain Protocol Last Admin: 07/29/20 21:01 Dose: 650 mg Documented by: Amlodipine Besylate (Norvasc) 5 mg PO DAILY [facility] Aspirin (Aspirin) 81 mg PO DAILY [facility] Last Admin: 07/30/20 08:23 Dose: 81 mg Documented by: Atorvastatin Calcium (Lipitor) 40 mg PO DAILY [facility] Last Admin: 07/30/20 08:23 Dose: 40 mg Documented by: Chlorhexidine Gluconate (Peridex) 15 ml SWABMOUTH BID [facility] Last Admin: 07/30/20 08:53 Dose: 15 ml Documented by: Clopidogrel Bisulfate (Plavix) 75 mg PO DAILY [facility] Last Admin: 07/30/20 08:23 Dose: 75 mg Documented by: Donepezil HCl (Aricept) 10 mg PO HS [facility] Last Admin: 07/29/20 21:00 Dose: 10 mg Documented by: Famotidine (Pepcid) 20 mg IV Q12 [facility] Last Admin: 07/30/20 08:22 Dose: 20 mg Documented by: Heparin Sodium (Porcine) (Heparin) 5,000 unit SQ Q12 [facility] Last Admin: 07/30/20 08:22 Dose: 5,000 unit Documented by: Hydralazine HCl (Apresoline) 10 mg IV Q4-6HP PRN PRN Reason: Hypertension Hydrochlorothiazide (Oretic) 12.5 mg PO DAILY [facility] Last Admin: 07/30/20 08:23 Dose: 12.5 mg Documented by: Sodium Chloride (Sodium Chloride 0.9%) 1,000 mls @ 100 mls/hr IV .Q10H [facility] Last Admin: 07/30/20 08:39 Dose: 100 mls/hr Documented by: Sodium Chloride (Saline Flush) 10 ml IV Q8 [facility] Last Admin: 07/30/20 05:37 Dose: 10 ml Documented by: Trazodone HCl (Desyrel) 50 mg PO HSP PRN PRN Reason: Insomnia A/P Narrative A/P Narrative: 1. Acute lacunar stroke 2. Hx of CVA MRI brain - Four small acute nonhemorrhagic lacunar infarcts in the right frontal lobe - all less than 4 mm. CTA head and neck: 70% throughout the both middle, posterior and anterior cerebral arteries. 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 Mild, left than 50 % stenoses of both vertebral artery origins and also the left intracranial vertebral artery. ER Dr. Bajwa spoke to neurology Dr. Espana who suggested to continue both aspirin and plavix, and discharge him on Holter monitor. Echo pending EKG - sinus rhythm single end sewer Neurocheck Q4hrs Pulse ox and oxygen therapy Level 5 minced and moist diet and thin liquids PT/OT/CM/SP aspirin, plavix and lipitor 3. Hx of psoriasis 4. GERD continue home meds 5. Hyponatremia IVF monitor Na levvel 6. HTN permisssive HTN Monitor BP 7. Dysphagia As per SP, he has mild oral dysphagia. Level 5 minced and moist diet and thin liquids 8. Bradycardia Asymptomatic BP not low will discharge on Holter monitor f/u with cardiology 9. Acute urinary retention Benites cath flomax f/u with urology 10. DVT prophylaxis: heparin 11. Code status: As per Dr. Bajwa, DNR/comfort care. But would like to let PT/OT see pt. hope we can place pt to assistant terminal manager care/SNF. Pt recommended SNF Time Spent With Patient Time: Total time spent is greater than 50% in coordination of care (as documented) at patient's floor/unit and/or counseling patient: QUALITY Stroke Onset of Symptoms Date: 07/27/20 Onset of Symptoms Time: 03:00 Symptom Onset Unknown: Yes VTE Deep Vein Thrombosis/Pulmonary Embolism Present on Admission: No
[2020-07-30] MEDS: amLODIPine 5 MG TABLET PO SCH (18:30)
[2020-07-30] MEDS ORDERED: QUEtiapine 25 MG TABLET PO PRN (19:21)
[2020-07-30] MEDS ORDERED: ZOLPIDEM 5 MG TABLET PO PRN (19:23)
[2020-07-30] MEDS: ACETAMINOPHEN 325 MG TABLET PO PRN (20:17)
[2020-07-30] MEDS: DONEPEZIL 10 MG TABLET PO SCH (20:17)
[2020-07-30] MEDS ORDERED: TAMSULOSIN 0.4 MG CAPSULE PO SCH (21:00)
[2020-07-31] MEDS: 0.9 % SODIUM CHLORIDE 1,000 ML IV SCH ×3 (04:01→14:35)
[2020-07-31] MEDS: 0.9 % SODIUM CHLORIDE 10 ML SYRINGE IV SCH ×3 (05:13→21:32)
[2020-07-31 06:38] LABS: Basophils # (Auto) 0.03 K/mcL (0.00-0.20); Basophils % (Auto) 0.5 % (0.0-2.0); Eosinophils # (Auto) 0.19 K/mcL (0.00-0.70); Hematocrit 38.6 % (41.0-55.0); Hemoglobin 13.4 g/dL (13.5-16.5); Lymphocytes # (Auto) 1.77 K/mcL (1.50-4.80); Lymphocytes % (Auto) 28.2 % (15.0-49.0); Mean Cell Volume 96.5 fL (80.0-100.0); Mean Corpuscular HGB Conc 34.7 g/dL (31.0-36.0); Mean Platelet Volume 9.5 fL (7.4-10.4); Monocytes # (Auto) 0.65 K/mcL (0.10-0.90); Monocytes % (Auto) 10.4 % (1.0-12.0); Neutrophils % (Auto) 57.9 % (38.0-78.0); Platelet Count 169 K/mcL (140-440); Red Cell Distribution Width 13.2 % (11.5-14.5); WBC 6.3 K/mcL (4.5-11.0)
[2020-07-31 07:06] LABS: ALT/SGPT 10 U/L (<40); AST/SGOT 18 U/L (<40); Albumin 3.1 gm/dL (3.2-5.2); Albumin/Globulin Ratio 1.1 (1.0-2.3); Alkaline Phosphatase 65 U/L (39-117); Bilirubin,Total 0.5 mg/dL (0.1-1.0); Blood Urea Nitrogen 17 mg/dL (8-23); Calcium 8.5 mg/dL (8.6-10.4); Carbon Dioxide 27 mmol/L (22-30); Chloride 100 mmol/L (96-108); Globulin 2.7 gm/dL (2.2-3.7); Glomerular Filtration Rate 61; Glucose 84 mg/dL (70-105)
[2020-07-31] MEDS: CHLORHEXIDINE GLUCONATE 1 ML ORAL.SOL SWABMOUTH SCH ×2 (09:12→20:39)
[2020-07-31] MEDS: ASPIRIN 81 MG TAB.CHEW PO SCH (09:27)
[2020-07-31] MEDS: HYDROCHLOROTHIAZIDE 12.5 MG CAPSULE PO SCH (09:27)
[2020-07-31] MEDS: HEPARIN 5,000 UNIT/ML VIAL SQ SCH ×2 (09:27→20:39)
[2020-07-31] MEDS: FAMOTIDINE/PF 20 MG/2 ML VIAL IV SCH ×2 (09:27→20:39)
[2020-07-31] MEDS: amLODIPine 5 MG TABLET PO SCH (09:27)
[2020-07-31] MEDS: CLOPIDOGREL 75 MG TABLET PO SCH (09:27)
[2020-07-31] MEDS: ATORVASTATIN 40 MG TABLET PO SCH (09:27)
[2020-07-31] MEDS ORDERED: ZOLPIDEM 5 MG TABLET PO PRN (10:29)
[2020-07-31] MEDS ORDERED: traZODone HCL 50 MG TABLET PO PRN (10:29)
[2020-07-31] MEDS ORDERED: hydrALAZINE 20 MG/ML VIAL IV PRN (10:29)
[2020-07-31] MEDS ORDERED: ACETAMINOPHEN 325 MG TABLET PO PRN (10:29)
[2020-07-31] MEDS ORDERED: IOPAMIDOL 100 ML BOTTLE IV ONE (10:29)
[2020-07-31] MEDS ORDERED: QUEtiapine 25 MG TABLET PO PRN (10:29)
--- NOTE | 2020-07-31 13:10 | Internal Med Progress Note ---
SUBJECTIVE Subjective Patient information: Note initiated : 07/31/20 at 1:06 pm Service Date, if different from initiated Date: [] Patient: Jasmin Biggs 84 y/o M admitted on 07/29/20 for Falls, Weakness. Chief Complaint: [] Mr. Biggs is a 84 year old M with a history of previous CVA, psoriasis and GERD who was brought to the ER due to concerns for a right facial droop. Patient is a poor historian and cannot give medical history. ER physician Dr. Lu could not find right facial droop on his exam. In the ER, CT of head without contrast showed negative for acute pathology. But MRI brain showed four small acute nonhemorrhagic lacunar infarcts in the right frontal lobe - all less than 4 mm. As per ER Dr. Bajwa, pt has been taking aspirin. He stopped taking plavix 1 year ago due to nose bleeding. Dr. Bajwa spoke to neurology Dr. Espana who suggested to continue both aspirin and plavix, and discharge him on Holter monitor. 07/30 Pt does not have any complaints. Denies headache, dizziness, nausea, or vomiting. Blood pressure is not well controlled. He was a found to have bradycardia but patient is asymptomatic. No overnight events 07/31 Patient does not have any new complaints. Denies headache, dizziness, chest pain, shortness of breath. Heart rate 49-69 today. Blood pressure is stable and acceptable. No overnight events Review of Systems Review of systems: Positive for right facial droop. All other systems were reviewed and negative. Constitutional Vitals: Vital Signs Temp Pulse Resp BP Pulse Ox 98.1 F 65 19 100/59 96 07/31/20 08:00 07/30/20 07:51 07/31/20 10:02 07/31/20 10:02 07/31/20 10:02 Period Temp Pulse Resp BP Sys/Patel Pulse Ox Last 24 Hr 97.7 F-99.4 F 14-31 96-148/53-114 92-98 Intake and Output 07/30/20 07/31/20 07/31/20 21:59 05:59 13:59 Intake Total 1593 943 440 Output Total 150 1750 Balance 1443 -807 440 Weight 89.584 kg Intake & Output: Intake & Output 07/30/20 07/31/20 07/31/20 21:59 05:59 13:59 Intake Total 1593 943 440 Output Total 150 1750 Balance 1443 -807 440 Weight 89.584 kg Intake: IV 993 943 Sodium Chloride 0.9% 1,000 ml @ 993 943 100 mls/hr IV .Q10H [facility] Rx#: [id number] Oral 600 440 Output: Urine Catheter Amount 150 1750 Other: Meal Dinner Breakfast Percent of Meal Consumed 25% 75% Urine Appearance Clear Clear Clear Small Blood Clots Uretheral (Benites) Clear Clear Small Blood Clots Urine Color Light Kiki Light Kiki Light Kiki Blood Tinged Blood Tinged Uretheral (Benites) Light Kiki Dark Yellow Blood Tinged Urine Odor Strong Strong Uretheral (Benites) Normal Stool Size Large Large Stool Color Brown Brown Stool Consistency Normal for Patient Soft Soft Formed Additional findings Additional findings: General - No acute distress Eyes - PERRLA, EOM intact ENT no rhinorrhea, no noticeable or palpable swelling, no redness or rash around throat or on face Neck supple, no JVD, no thyromegaly Respiratory: Lungs -clear, no wheezing or crackles. Cardiovascular - RRR no m/r/g, GI - Normal bowel sounds, no distended, soft. Extremeties - No edema, cyanosis or clubbing Hemo/lymphatic/immune no lymphadenopathy Neurological Alert, left nasolabial shallow, strength and sensation in both legs and arms seem to be intact. Psychiatry flat affect OBJ DATA Labs CBC & Chem 7: 07/31/20 05:25 07/31/20 05:25 Labs: Abnormal Lab Results 07/31/20 07/31/20 07/30/20 05:25 05:25 05:22 RBC 4.00 L 4.15 L Hgb 13.4 L Hct 38.6 L 40.0 L Neut % (Auto) Lymph % (Auto) 14.4 L Lymph # (Auto) 1.23 L Absolute Neutrophils POC PT Sodium Chloride Anion Gap 7.0 L Glucose Hemoglobin A1c Calcium 8.5 L Total Protein 5.8 L Albumin 3.1 L HDL Cholesterol SARS-CoV-2 (PCR) 07/30/20 07/29/20 07/29/20 05:22 11:55 11:22 RBC Hgb Hct Neut % (Auto) Lymph % (Auto) Lymph # (Auto) Absolute Neutrophils POC PT Sodium Chloride Anion Gap Glucose Hemoglobin A1c 6.3 H Calcium Total Protein Albumin HDL Cholesterol 35 L SARS-CoV-2 (PCR) Invalid A 07/29/20 07/29/20 07/29/20 05:55 05:55 05:55 RBC 4.46 L Hgb Hct Neut % (Auto) 87.3 H Lymph % (Auto) 6.3 L Lymph # (Auto) 0.68 L Absolute Neutrophils 9.43 H POC PT 11.6 L Sodium 132 L Chloride 94 L Anion Gap Glucose 140 H Hemoglobin A1c Calcium Total Protein Albumin HDL Cholesterol SARS-CoV-2 (PCR) Meds: Medications Acetaminophen (Tylenol) 650 mg PO Q6HP PRN; Protocol PRN Reason: Per Pain Protocol Amlodipine Besylate (Norvasc) 5 mg PO DAILY [facility] Aspirin (Aspirin) 81 mg PO DAILY [facility] Atorvastatin Calcium (Lipitor) 40 mg PO DAILY [facility] Chlorhexidine Gluconate (Peridex) 15 ml SWABMOUTH BID [facility] Clopidogrel Bisulfate (Plavix) 75 mg PO DAILY [facility] Donepezil HCl (Aricept) 10 mg PO HS [facility] Famotidine (Pepcid) 20 mg IV Q12 [facility] Heparin Sodium (Porcine) (Heparin) 5,000 unit SQ Q12 [facility] Hydralazine HCl (Apresoline) 10 mg IV Q4-6HP PRN PRN Reason: Hypertension Hydrochlorothiazide (Oretic) 12.5 mg PO DAILY [facility] Sodium Chloride (Sodium Chloride 0.9%) 1,000 mls @ 100 mls/hr IV .Q10H [facility] Last Admin: 07/31/20 10:42 Dose: Not Given Documented by: Quetiapine Fumarate (Seroquel) 12.5 mg PO BIDP PRN PRN Reason: Agitation Sodium Chloride (Saline Flush) 10 ml IV Q8 [facility] Tamsulosin HCl (Flomax) 0.4 mg PO HS [facility] Trazodone HCl (Desyrel) 50 mg PO HSP PRN PRN Reason: Insomnia Zolpidem Tartrate (Ambien) 5 mg PO HSP PRN PRN Reason: Insomnia A/P Narrative A/P Narrative: 1. Acute lacunar stroke 2. Hx of CVA MRI brain - Four small acute nonhemorrhagic lacunar infarcts in the right frontal lobe - all less than 4 mm. CTA head and neck: 70% throughout the both middle, posterior and anterior cerebral arteries. 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 Mild, left than 50 % stenoses of both vertebral artery origins and also the left intracranial vertebral artery. ER Dr. Bajwa spoke to neurology Dr. Espana who suggested to continue both aspirin and plavix, and discharge him on Holter monitor. 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 Hx of psoriasis 4. GERD continue home meds 5. Hyponatremia IVF monitor Na levvel 6. HTN permisssive HTN Monitor BP 7. Dysphagia As per SP, he has mild oral dysphagia. Level 5 minced and moist diet and thin liquids 8. Bradycardia Asymptomatic BP not low will discharge on Holter monitor f/u with cardiology 9. Acute urinary retention Benites cath flomax f/u with urology 10. DVT prophylaxis: heparin 11. Code status: As per Dr. Bajwa, DNR/comfort care. But would like to let PT/OT see pt. hope we can place pt to assisted care/SNF. Pt recommended SNF, awaiting for placement Time Spent With Patient Time: Total time spent is greater than 50% in coordination of care (as documented) at patient's floor/unit and/or counseling patient: QUALITY Stroke Onset of Symptoms Date: 07/27/20 Onset of Symptoms Time: 03:00 Symptom Onset Unknown: Yes VTE Deep Vein Thrombosis/Pulmonary Embolism Present on Admission: No
[2020-07-31 15:23] LABS: Appearance,Urine CLEAR (Clear); Bilirubin,Urine Negative (Negative); Color,Urine RED; Culture Indicated,Urine No; Glucose,Urine (UA) Negative (Negative); Ketones,Urine Negative (Negative); Leukocyte Esterase,Urine Negative /ug (Negative); Mucus,Urine FEW /hpf; Nitrate,Urine Negative (Negative); Protein,Urine 30 mg/dL (Negative); Specific Gravity,Urine 1.018 (1.000-1.035); Urine Blood >=1.0 mg/dL (Negative); Urine RBC > 182 /hpf (0-1); Urine Squamous Epithelial Cell 0 /hpf (0-4); Urine WBC 0 /hpf (0-4)
[2020-07-31] MEDS ORDERED: TAMSULOSIN 0.4 MG CAPSULE PO SCH (21:00)
[2020-07-31] MEDS ORDERED: DONEPEZIL 10 MG TABLET PO SCH (21:00)
[2020-08-01] MEDS: 0.9 % SODIUM CHLORIDE 1,000 ML IV SCH ×2 (01:11→11:53)
[2020-08-01] MEDS: 0.9 % SODIUM CHLORIDE 10 ML SYRINGE IV SCH ×2 (05:36→14:24)
[2020-08-01 06:33] LABS: Basophils # (Auto) 0.03 K/mcL (0.00-0.20); Basophils % (Auto) 0.4 % (0.0-2.0); Eosinophils # (Auto) 0.21 K/mcL (0.00-0.70); Eosinophils % (Auto) 2.9 % (0.0-7.0); Hematocrit 39.5 % (41.0-55.0); Hemoglobin 13.9 g/dL (13.5-16.5); Lymphocytes # (Auto) 1.69 K/mcL (1.50-4.80); Mean Cell Volume 94.3 fL (80.0-100.0); Mean Corpuscular HGB Conc 35.2 g/dL (31.0-36.0); Mean Platelet Volume 9.3 fL (7.4-10.4); Monocytes # (Auto) 0.73 K/mcL (0.10-0.90); Monocytes % (Auto) 9.9 % (1.0-12.0); Neutrophils % (Auto) 63.8 % (38.0-78.0); Platelet Count 184 K/mcL (140-440); RBC 4.19 M/mcL (4.50-5.90); WBC 7.4 K/mcL (4.5-11.0)
[2020-08-01 07:04] LABS: ALT/SGPT 12 U/L (<40); AST/SGOT 17 U/L (<40); Albumin 3.2 gm/dL (3.2-5.2); Albumin/Globulin Ratio 1.1 (1.0-2.3); Alkaline Phosphatase 77 U/L (39-117); Bilirubin,Total 0.6 mg/dL (0.1-1.0); Blood Urea Nitrogen 14 mg/dL (8-23); Calcium 8.4 mg/dL (8.6-10.4); Carbon Dioxide 27 mmol/L (22-30); Chloride 99 mmol/L (96-108); Globulin 2.9 gm/dL (2.2-3.7); Glomerular Filtration Rate 78; Glucose 98 mg/dL (70-105)
[2020-08-01] MEDS: FAMOTIDINE/PF 20 MG/2 ML VIAL IV SCH (08:52)
[2020-08-01] MEDS: CHLORHEXIDINE GLUCONATE 1 ML ORAL.SOL SWABMOUTH SCH (08:53)
[2020-08-01] MEDS: HEPARIN 5,000 UNIT/ML VIAL SQ SCH (08:53)
[2020-08-01] MEDS: POTASSIUM CHLORIDE 20 MEQ TABLET PO SCH ×2 (08:54→14:37)
[2020-08-01] MEDS ORDERED: ATORVASTATIN 40 MG TABLET PO SCH (09:00)
[2020-08-01] MEDS ORDERED: HYDROCHLOROTHIAZIDE 12.5 MG CAPSULE PO SCH (09:00)
[2020-08-01] MEDS ORDERED: ASPIRIN 81 MG TAB.CHEW PO SCH (09:00)
[2020-08-01] MEDS ORDERED: amLODIPine 5 MG TABLET PO SCH (09:00)
[2020-08-01] MEDS ORDERED: CLOPIDOGREL 75 MG TABLET PO SCH (09:00)
--- NOTE | 2020-08-01 15:36 | Internal Med Progress Note ---
SUBJECTIVE Subjective Patient information: Note initiated : 08/01/20 at 3:32 pm Service Date, if different from initiated Date: [] Patient: Jasmin Biggs 84 y/o M admitted on 07/29/20 for Falls, Weakness. Chief Complaint: [] Mr. Biggs is a 84 year old M with a history of previous CVA, psoriasis and GERD who was brought to the ER due to concerns for a right facial droop. Patient is a poor historian and cannot give medical history. ER physician Dr. Lu could not find right facial droop on his exam. In the ER, CT of head without contrast showed negative for acute pathology. But MRI brain showed four small acute nonhemorrhagic lacunar infarcts in the right frontal lobe - all less than 4 mm. As per ER Dr. Bajwa, pt has been taking aspirin. He stopped taking plavix 1 year ago due to nose bleeding. Dr. Bajwa spoke to neurology Dr. Espana who suggested to continue both aspirin and plavix, and discharge him on Holter monitor. 07/30 Pt does not have any complaints. Denies headache, dizziness, nausea, or vomiting. Blood pressure is not well controlled. He was a found to have bradycardia but patient is asymptomatic. No overnight events 07/31 Patient does not have any new complaints. Denies headache, dizziness, chest pain, shortness of breath. Heart rate 49-69 today. Blood pressure is stable and acceptable. No overnight events 08/01 Pt is stable and does not have new complaints. Denies headache, n/v. K3.2 today. CM discussed with about discharge plan. would like him to go home instead of SNF. We will arrange home health with RN/PT/OT/SW/Aide for home. Hospital bed was prescribed. He will probably be discharged tomrrow. He needs Holter monitor. Spoke to urology Dr. Daley who will probably see pt today for his acute urinary retention and hematuria. If Dr. Daley does not see him today, she will see him in office. Review of Systems Review of systems: Positive for right facial droop. All other systems were reviewed and negative. Constitutional Vitals: Vital Signs Temp Pulse Resp BP Pulse Ox 98.1 F 88 22 135/95 95 08/01/20 11:55 08/01/20 07:04 08/01/20 11:55 08/01/20 11:55 08/01/20 07:04 Period Temp Pulse Resp BP Sys/Patel Pulse Ox Last 24 Hr 97.2 F-98.4 F 88 17-22 126-150/62-95 95-95 Intake and Output 08/01/20 08/01/20 08/01/20 05:59 13:59 21:59 Intake Total 1240 1120 Output Total 700 Balance 540 1120 Intake & Output: Intake & Output 08/01/20 08/01/20 08/01/20 05:59 13:59 21:59 Intake Total 1240 1120 Output Total 700 Balance 540 1120 Intake: IV 1000 1000 Sodium Chloride 0.9% 1,000 ml @ 1000 1000 100 mls/hr IV .Q10H [facility] Rx#: [id number] Oral 240 120 Output: Urine Catheter Amount 700 Other: Meal Breakfast Percent of Meal Consumed 100% Feeding Ability Independent Urine Appearance Clear Uretheral (Benites) Sediment Urine Color Pale Uretheral (Benites) Straw Additional findings Additional findings: General - No acute distress Eyes - PERRLA, EOM intact ENT no rhinorrhea, no noticeable or palpable swelling, no redness or rash around throat or on face Neck supple, no JVD, no thyromegaly Respiratory: Lungs -clear, no wheezing or crackles. Cardiovascular - RRR no m/r/g, GI - Normal bowel sounds, no distended, soft. Extremeties - No edema, cyanosis or clubbing Hemo/lymphatic/immune no lymphadenopathy Neurological Alert, left nasolabial shallow, strength and sensation in both legs and arms seem to be intact. Psychiatry flat affect OBJ DATA Labs CBC & Chem 7: 08/01/20 05:22 08/01/20 05:22 Labs: Abnormal Lab Results 08/01/20 08/01/20 07/31/20 05:22 05:22 11:18 RBC 4.19 L Hgb Hct 39.5 L Lymph % (Auto) Lymph # (Auto) Potassium 3.2 L Anion Gap Calcium 8.4 L Total Protein Albumin HDL Cholesterol Urine Protein 30 A Urine Occult Blood >=1.0 A Urine Urobilinogen 4.0 A Urine RBC > 182 H Urine Mucus Few A 07/31/20 07/31/20 07/30/20 05:25 05:25 05:22 RBC 4.00 L 4.15 L Hgb 13.4 L Hct 38.6 L 40.0 L Lymph % (Auto) 14.4 L Lymph # (Auto) 1.23 L Potassium Anion Gap 7.0 L Calcium 8.5 L Total Protein 5.8 L Albumin 3.1 L HDL Cholesterol Urine Protein Urine Occult Blood Urine Urobilinogen Urine RBC Urine Mucus 07/30/20 05:22 RBC Hgb Hct Lymph % (Auto) Lymph # (Auto) Potassium Anion Gap Calcium Total Protein Albumin HDL Cholesterol 35 L Urine Protein Urine Occult Blood Urine Urobilinogen Urine RBC Urine Mucus Meds: Medications Acetaminophen (Tylenol) 650 mg PO Q6HP PRN; Protocol PRN Reason: Per Pain Protocol Amlodipine Besylate (Norvasc) 5 mg PO DAILY [facility] Last Admin: 08/01/20 08:53 Dose: 5 mg Documented by: Aspirin (Aspirin) 81 mg PO DAILY [facility] Last Admin: 08/01/20 08:52 Dose: 81 mg Documented by: Atorvastatin Calcium (Lipitor) 40 mg PO DAILY [facility] Last Admin: 08/01/20 08:53 Dose: 40 mg Documented by: Chlorhexidine Gluconate (Peridex) 15 ml SWABMOUTH BID [facility] Last Admin: 08/01/20 08:53 Dose: 15 ml Documented by: Clopidogrel Bisulfate (Plavix) 75 mg PO DAILY [facility] Last Admin: 08/01/20 08:53 Dose: 75 mg Documented by: Donepezil HCl (Aricept) 10 mg PO HS [facility] Last Admin: 07/31/20 20:39 Dose: 10 mg Documented by: Famotidine (Pepcid) 20 mg IV Q12 [facility] Last Admin: 08/01/20 08:52 Dose: 20 mg Documented by: Heparin Sodium (Porcine) (Heparin) 5,000 unit SQ Q12 [facility] Last Admin: 08/01/20 08:53 Dose: 5,000 unit Documented by: Hydralazine HCl (Apresoline) 10 mg IV Q4-6HP PRN PRN Reason: Hypertension Hydrochlorothiazide (Oretic) 12.5 mg PO DAILY [facility] Last Admin: 08/01/20 08:53 Dose: 12.5 mg Documented by: Sodium Chloride (Sodium Chloride 0.9%) 1,000 mls @ 100 mls/hr IV .Q10H [facility] Last Admin: 11/12/20 11:53 Dose: 100 mls/hr Documented by: Potassium Chloride (Kdur) 20 meq PO TIDCC [facility] Last Admin: 08/01/20 14:37 Dose: 20 meq Documented by: Quetiapine Fumarate (Seroquel) 12.5 mg PO BIDP PRN PRN Reason: Agitation Last Admin: 07/31/20 20:39 Dose: 12.5 mg Documented by: Sodium Chloride (Saline Flush) 10 ml IV Q8 [facility] Last Admin: 08/01/20 14:24 Dose: Not Given Documented by: Tamsulosin HCl (Flomax) 0.4 mg PO HS [facility] Last Admin: 07/31/20 20:39 Dose: 0.4 mg Documented by: Trazodone HCl (Desyrel) 50 mg PO HSP PRN PRN Reason: Insomnia Last Admin: 07/31/20 20:38 Dose: 50 mg Documented by: Zolpidem Tartrate (Ambien) 5 mg PO HSP PRN PRN Reason: Insomnia A/P Narrative A/P Narrative: 1. Acute lacunar stroke 2. Hx of CVA MRI brain - Four small acute nonhemorrhagic lacunar infarcts in the right frontal lobe - all less than 4 mm. CTA head and neck: 70% throughout the both middle, posterior and anterior cerebral arteries. 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 Mild, left than 50 % stenoses of both vertebral artery origins and also the left intracranial vertebral artery. ER Dr. Bajwa spoke to neurology Dr. Espana who suggested to continue both aspirin and plavix, and discharge him on Holter monitor. Echo -EF 60 to 65%, no septal defect EKG - sinus rhythm lunchroom monitor Neurocheck Q4hrs Pulse ox and oxygen therapy Level 5 minced and moist diet and thin liquids PT/OT/CM/SP aspirin, plavix and lipitor 3. Hx of psoriasis 4. GERD continue home meds 5. Hyponatremia IVF monitor Na levvel 6. HTN permisssive HTN Monitor BP 7. Dysphagia As per SP, he has mild oral dysphagia. Level 5 minced and moist diet and thin liquids 8. Bradycardia Asymptomatic BP not low will discharge on Holter monitor f/u with cardiology 9. Acute urinary retention Benites cath flomax f/u with urology Urology Dr. Daley consult 10. DVT prophylaxis: heparin 11. Code status: As per Dr. Bajwa, DNR/comfort care. But would like to let PT/OT see pt. hope we can place pt to detention care/SNF. Pt recommended SNF, awaiting for placement Time Spent With Patient Time: Total time spent is greater than 50% in coordination of care (as documented) at patient's floor/unit and/or counseling patient: QUALITY Stroke Onset of Symptoms Date: 07/27/20 Onset of Symptoms Time: 03:00 Symptom Onset Unknown: Yes VTE Deep Vein Thrombosis/Pulmonary Embolism Present on Admission: No
--- NOTE | 2020-08-01 16:30 | Ultrasound Report ---
CLINICAL INFORMATION: abdominal pain COMPARISON: None. FINDINGS: Multiple small stones present within the gallbladder. Gallbladder wall is normal thickness. There is no focal tenderness to suggest cholecystitis. Common bile duct is normal - 4 mm. The liver is normal in size and echotexture. Pancreas is poorly visualized no gross abnormality. Both kidneys are normal in size the right is 12 x 5 cm and the left is 12 x 5 cm. Renal echotexture is hyperechoic suggesting medical renal disease no focal renal lesions. The spleen is normal. Fusiform infrarenal abdominal aortic aneurysm with maximum diameter 7.7 cm appreciated IMPRESSION: 1. Large infrarenal abdominal aortic aneurysm with a diameter of 7.7 cm. Suggest: CT abdominal aortogram. This is consider prerupture state and will require immediate endovascular graft. 2. Cholelithiasis Interpreted and Authenticated by: Sohail Strange 08/01/20
[2020-08-01] MEDS ORDERED: 0.9 % SODIUM CHLORIDE 1,000 ML IV SCH (17:00)
[2020-08-01] MEDS ORDERED: LABETALOL 500 MG in DEXTROSE 5% IN WATER 150 ML IV PRN (17:00)
[2020-08-01] MEDS ORDERED: 0.9 % SODIUM CHLORIDE 250 ML IV SCH (17:00)
--- NOTE | 2020-08-01 19:04 | Discharge Summary ---
Discharge Provider Provider Patient information: Note initiated : 08/01/20 at 6:52 pm Service Date, if different from initiated Date: [] Patient: Jasmin Biggs 84 y/o M admitted on 07/29/20 for Falls, Weakness. Chief Complaint: [] Date of admission: 07/29/20 12:14 Discharge date: 08/01/20 Primary care physician: Shai Stacy Consults: 07/29/20 10:36 Consult to Physician [CONS] Stat Comment: Consulting Provider: Dior Do Reason For Exam: Physician to Consult 07/31/20 09:03 Consult to Physician [CONS] Routine Comment: Consulting Provider: [facility] Reason For Exam: Physician to Consult 08/01/20 07:38 Consult to Physician [CONS] Routine Comment: acute urinary retention and hematuria Consulting Provider: Earl Daley Reason For Exam: Physician to Consult Discharge Meds Discharge Medications Home Medications aspirin 81 mg tablet,delayed release 81 mg PO QDAY #90 tab 08/24/18 [Rx Confirmed 07/29/20 Last Taken 07/28/20 08:00] donepezil 10 mg PO QPM 07/29/20 [History Confirmed 07/29/20 Last Taken 07/28/20 22:00] hydrochlorothiazide 12.5 mg PO QAM 07/29/20 [History Confirmed 07/29/20 Last Taken 07/28/20 08:00] trazodone 150 mg PO QPM 07/29/20 [History Confirmed 07/29/20 Last Taken 07/28/20 22:00] COURSE Hospital Course Hospital course: Mr. Biggs is a 84 year old M with a history of previous CVA, psoriasis and GERD who was brought to the ER due to concerns for a right facial droop. Patient is a poor historian and cannot give medical history. ER physician Dr. Lu could not find right facial droop on his exam. In the ER, CT of head without contrast showed negative for acute pathology. But MRI brain showed four small acute nonhemorrhagic lacunar infarcts in the right frontal lobe - all less than 4 [address] per ER Dr[address] Bajwa, pt has been taking aspirin. He stopped taking plavix 1 year ago due to nose bleeding. Dr. Bajwa spoke to neurology Dr. Espana who suggested to continue both aspirin and plavix, and discharge him on Holter monitor. 1. Acute lacunar stroke 2. Hx of CVA MRI brain - Four small acute nonhemorrhagic lacunar infarcts in the right fronta l lobe - all less than 4 mm. CTA head and neck: 70% throughout the both middle, posterior and anterior cerebral arteries. 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 Mild, left than 50 % stenoses of both vertebral artery origins and also the left intracranial vertebral artery. ER Dr. Bajwa spoke to neurology Dr. Espana who suggested to continue both a spirin and plavix, and discharge him on Holter monitor. Echo -EF 60 to 65%, no septal defect EKG - sinus rhythm rn cardiac Neurocheck Q4hrs Pulse ox and oxygen therapy Level 5 minced and moist diet and thin liquids PT/OT/CM/SP aspirin, plavix and lipitor 3. Hx of psoriasis 4. GERD continue home meds 5. Hyponatremia IVF monitor Na levvel 6. HTN permisssive HTN Monitor BP 7. Dysphagia As per SP, he has mild oral dysphagia. Level 5 minced and moist diet and thin liquids 8. Bradycardia Asymptomatic BP not low will discharge on Holter monitor f/u with cardiology 9. Acute urinary retention Benites cath flomax f/u with urology Urology Dr. Daley consult 10. Infrarenal abdominal aortic aneurysm Prerupture status US showed diameter of 7.7cm CTA abd Labetolol drip to keep SBP < 120 and HR < 70 discontinued aspirin, plavix and heparin (prophylaxis) will transfer him to [facility] for further workup and treatment. 07/30 Pt does not have any complaints. Denies headache, dizziness, nausea, or vomiting. Blood pressure is not well controlled. He was a found to have bradycardia but patient is asymptomatic. No overnight events 07/31 Patient does not have any new complaints. Denies headache, dizziness, chest pain, shortness of breath. Heart rate 49-69 today. Blood pressure is stable and acceptable. No overnight events 08/01 Pt is stable and does not have new complaints. Denies headache, n/v. K3.2 today. CM discussed with about discharge plan. would like him to go home instead of SNF. We will arrange home health with RN/PT/OT/SW/Aide for home. Hospital bed was prescribed. He will probably be discharged tomrrow. He needs Holter monitor. Spoke to urology Dr. Daley who will probably see pt today for his acute urinary retention and hematuria. If Dr. Daley does not see him today, she will see him in office. Today patient complains of abdominal pain. Ultrasound abdomen showed 1. Large infrarenal abdominal aortic aneurysm with a diameter of 7.7 cm. S uggest: CT abdominal aortogram. This is consider prerupture state and will require immediate endovascular graft. 2. Cholelithiasis Spoke to vascular surgeon Dr. Hoover at [facility] who accepted the pt. Dr. Hoover would like us to send the pt to his ER and do CTA abd at his hospital and . So I canceled the CTA order. I explained to who agreed with the plan. I spoke to ER Dr. Charles at [facility] who accepted the pt. Pt will be transferred by air. Discharge diagnosis: Acute lacunar stroke, abdominal aortic aneurysm Time Spent with Patient Time attestation: Total time spent providing and/or coordinating discharge services: EXAM Constitutional Vitals: Temp Pulse Resp BP Pulse Ox 98.1 F 88 22 118/65 96 08/01/20 11:55 08/01/20 07:04 08/01/20 11:55 08/01/20 17:21 08/01/20 15:51 Additional findings Additional findings: General - No acute distress Eyes - PERRLA, EOM intact ENT no rhinorrhea, no noticeable or palpable swelling, no redness or rash around throat or on face Neck supple, no JVD, no thyromegaly Respiratory: Lungs -clear, no wheezing or crackles. Cardiovascular - RRR no m/r/g, GI - Normal bowel sounds, no distended, soft, mild tenderness over umbilical area. Extremeties - No edema, cyanosis or clubbing Hemo/lymphatic/immune no lymphadenopathy Neurological Alert, left nasolabial shallow (almost resolved), strength and sensation in both legs and arms seem to be intact. Psychiatry flat affect Discharge Data Data Completed and Pending Labs on day of discharge: Labs from last 24 hours 08/01/20 08/01/20 05:22 05:22 WBC 7.4 RBC 4.19 L Hgb 13.9 Hct 39.5 L MCV 94.3 MCH 33.2 MCHC 35.2 RDW 13.0 Plt Count 184 MPV 9.3 Neut % (Auto) 63.8 Lymph % (Auto) 23.0 [place] % (Auto) 9.9 Eos % (Auto) 2.9 Baso % (Auto) 0.4 Lymph # (Auto) 1.69 [place] # (Auto) 0.73 Eos # (Auto) 0.21 Baso # (Auto) 0.03 Absolute Neutrophils 4.69 Sodium 135 Potassium 3.2 L Chloride 99 Carbon Dioxide 27 Anion Gap 9.0 BUN 14 Creatinine 0.9 GFR Calculation 78 Glucose 98 Calcium 8.4 L Total Bilirubin 0.6 AST 17 ALT 12 Alkaline Phosphatase 77 Total Protein 6.1 Albumin 3.2 Globulin 2.9 Albumin/Globulin Ratio 1.1 Discharge Plan Patient/Caregiver Discharge Instructions Activity: non-weight bearing Diet: NPO Instructions: Clopidogrel (By mouth), Ischemic Stroke (GEN) Prescriptions: No Action aspirin [Aspirin Low Dose] 81 mg tablet,delayed release (DR/EC) 81 mg PO QDAY Qty: 90 RF: 3 hydrochlorothiazide 12.5 mg tablet 12.5 mg PO QAM RF: 0 trazodone 50 mg tablet 150 mg PO QPM RF: 0 donepezil 10 mg tablet 10 mg PO QPM RF: 0 Other Ambulatory Orders: Hospital Bed (ONCE) Location: None Selected Ordered By: Dior Do Follow Up Plan Follow up with: Shai Stacy MD [Primary Care Provider] - 08/12/20 11:00 am Patient Disposition: er Acute [facility] Discharge Date/Time: 08/01/20 18:20 Discharge Orders: Discharge Order (Routine); Ordered 08/01/20 Ordered By: Dior Do QUALITY VTE Deep Vein Thrombosis/Pulmonary Embolism Present on Admission: No
== END 2020-08-01 18:20 | disposition short-term general hospital (02) | DRG 65 ==
LOC: ED 05:10 → ICU 12:14
PROVIDERS: ADMIT Internal Medicine; ATTEND Internal Medicine